=== PATIENT | female | born 1940 | race Caucasian/White ===

== ENCOUNTER 2018-05-24 13:34 | Inpatient (IN) | payer OTHER, MEDICARE ==
[~2018-05-24] VITALS: Ht 160 cm; Wt 61.8 kg
[~2018-05-24 13:34] MED LIST: BYSTOLIC 5MG5 MG PO; CARDIZEM CD 12120 MG PO; CARDIZEM CD180 MG PO; CRESTOR20 MG PO; DIGOX0.125 MG PO; ELIQUIS5 MG PO; Mucinex PO; OMEPRAZOLE20 MG PO; PLAVIX 75MG TAB75 MG PO; TYLENOL TAB 32325 MG PO; ULTRAM(MONOGRAP50 MG PO; VITAMIN D1000 IU PO
--- NOTE | 2018-05-24 13:58 | CT SCAN REPORT ---
EXAMINATION: CT HEAD WITHOUT CONTRAST CLINICAL INFORMATION: Headache and weakness. ICH mass. COMPARISON: Head CT 04/04/2014. TECHNIQUE: Contiguous axial imaging was performed from the skull base to vertex without intravenous administration of contrast. DLP: 605 mGy-cm. FINDINGS: There is no acute infarct, hemorrhage, mass, or extra-axial collection. There is redemonstration of a small focus of encephalomalacia in the high right paramedian frontal lobe (series 2 image 48). There is mild hypoattenuation in the periventricular and deep cerebral white matter extending into the basal ganglia likely reflecting small vessel ischemic changes. There is mild diffuse brain parenchymal volume loss with prominence of ventricles and sulci. No hydrocephalus is seen. The visualized paranasal sinuses and mastoid air cells are clear. Degenerative changes are noted at the right temporomandibular joint. IMPRESSION: - No acute intracranial abnormality. - Mild small vessel ischemic changes. Small old infarct in the high right frontal lobe. - Mild diffuse brain parenchymal volume loss.
[2018-05-24 14:01] LABS: ABSOLUTE BASOPHIL COUNT 0.1 /CUMM (0.0-0.2); ABSOLUTE EOSINOPHIL COUNT 0.1 /CUMM (0.0-0.7); ABSOLUTE GRANULOCYTE CT 4.2 /CUMM (1.4-6.5); ABSOLUTE LYMPH COUNT 1.9 /CUMM (1.2-3.4); ABSOLUTE MONOCYTE COUNT 0.4 /CUMM (0.10-0.60); EOSINOPHIL % 1.1 % (0-5); GRANULOCYTE % 63.1 % (42.2-75.2); HEMATOCRIT 34.1 % (37-47); MEAN CORPUSCULAR HGB 24.9 PG (27.0-31.0); MEAN CORPUSCULAR HGB CONC 33.2 G/DL (33.0-37.0); MEAN PLATELET VOLUME 7.8 FL (7.4-10.4); PLATELET COUNT 366 /CUMM (130-400); RBC DISTRIBUTION WIDTH 22.4 % (11.5-14.5); RED BLOOD CELL CT 4.54 /CUMM (4.20-5.40); WHITE BLOOD CELL COUNT 6.7 /CUMM (4.8-10.8)
--- NOTE | 2018-05-24 14:06 | ED NEURO DEFICIT/STROKE ---
History of Present Illness General Chief Complaint: Neuro Symptoms/ Deficit Stated Complaint: BROUGHT IN FOR POSSIBLE MINI STROKE PER Source: patient Exam Limitations: no limitations Vital Signs & Intake/Output Vital Signs & Intake/Output Vital Signs Date Time Temp Pulse Resp B/P B/P Pulse O2 O2 Flow FiO2 Mean Ox Delivery Rate 05/24 1833 98.1 74 20 182/78 95 Room Air 05/24 1734 98.0 72 20 150/70 95 Room Air 05/24 1542 96 Room Air 05/24 1535 97.2 80 20 177/75 96 Room Air 05/24 1423 98.0 80 20 136/63 98 05/24 1337 97.2 86 18 171/78 95 Room Air Allergies Coded Allergies: MDX - Codeine (CODEINE) (Intermediate, VOMITING 04/04/14) MDX - Penicillin (PENICILLIN) (Intermediate, HIVES 04/04/14) Reconcile Medications Apixaban (Eliquis) 5 MG TABLET 1 TAB PO Q12 AFIB Cholecalciferol (Vitamin D3) 1,000 UNIT TABLET 1 TAB PO DAILY SUPPLEMENT DILTIAZEM HCL (Cardizem Cd) 180 MG CAP.ER.24H 1 CAP PO DAILY heart [Mucinex] 600 mg TAB 1 TAB PO Q12 sinus Nebivolol (Bystolic) 5 MG TABLET 1 TAB PO DAILY AFIB (Reported) Omeprazole 20 MG CAPSULE.DR 2 TAB PO BID BARRETTCarlos ESOPHOGUS (Reported) Rosuvastatin Calcium (Crestor) 20 MG TABLET 1 TAB PO DAILY CHOLESTROL Triage Note: 77 Y/O FEMALE BROUGHT TO [facility] WITH FAMILY C/O "NOT BEING ABLE TO FIND WORDS" SINCE THIS AM. PT WITH HX CVA. STATES SHE WOKE UP TODAY AND "CANNOT GET SOME WORDS". SPEECH CLEAR THOUGH PT DOES EXHIBIT DIFFICULTY FINDING SOME WORDS. TAKEN DIRECTLY TO CT SCAN FROM TRIAGE, THEN GOING TO ROOM 11 Triage Nurses Notes Reviewed? yes HPI: Patient presents for evaluation of trouble speaking that began this morning (I have been unable to obtain a definite time of onset and it is not clear if the patient awoke with symptoms or not). Patient states she took a nap and ate lunch and thought she was doing better. Then symptoms seemed to worsen again. She states symptoms have waxed and waned since onset but have been more or less constant. She denies any prior episodes. Patient states that while she was eating lunch she thought her right arm was "a little off". She denies any associated visual loss, facial droop or lower extremity weakness. She likewise denies chest pain or palpitations. She is currently taking Eliquis for history of atrial fibrillation. Past History Travel History Traveled to [place] past 21 day No Medical History Any Pertinent Medical History? 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 No Review of Systems Review of Systems Constitutional: Reports: no symptoms. EENTM: Reports: no symptoms. Respiratory: Reports: no symptoms. Cardiovascular: Reports: no symptoms. GI: Reports: no symptoms. Genitourinary: Reports: no symptoms. Musculoskeletal: Reports: no symptoms. Skin: Reports: no symptoms. Neurological/Psychological: Reports: see HPI. Hematologic/Endocrine: Reports: no symptoms. Immunologic/Allergic: Reports: no symptoms. All Other Systems: Reviewed and Negative Physical Exam Physical Exam General Appearance: see below Cranial Nerves: see below Comments: Gen.: Well-nourished, well-developed, no acute respiratory distress. Head: Normocephalic, atraumatic. Eyes: Normal inspection bilaterally, PERRLA, EOMI Ears: Normal inspection bilaterally Nose: Normal inspection Throat/mouth : Moist mucosa , normal tongue protrusion Neck: Supple, full range of motion, no goiter, Heart: Regular rate and rhythm, no murmurs rubs or gallops Lungs: Clear to auscultation bilaterally with normal air entry Chest: Nontender Back: Normal range of motion Abdomen: Nondistended, normal bowel sounds Extremities: Normal range of motion grossly, equal radial pulses, no cyanosis clubbing or edema, dysmetria of the right upper extremity, weakness of the left calf (chronic per patient secondary to prior stroke) Neurologic: Cranial nerves 2 through 12 intact, speech is clear and without apparent aphasia, gait is stable Skin: warm and dry Psychiatric: Calm, cooperative, no apparent delusions or hallucinations Core Measures CVA/TIA Diagnosis: Yes Swallow Evaluation Pass Swallow eval date 05/24/18 Swallow eval time 1901 Sepsis Present: No Sepsis Focused Exam Completed? No Progress Differential Diagnosis: cva, tia, HYPOGLYCEMIA, ELECTRONIC ABNORMALITY Plan of Care: Orders Procedure Date/time Status Heart Healthy Diet 05/25 B Active Misc Message 05/24 1902 Active ED Holding Orders 05/24 1902 Active Admit to inpatient 05/24 1902 Active Vital Signs 05/24 1902 Active Code Status 05/24 1902 Active EKG 05/24 143 Active TROPONIN LEVEL 05/24 133 Complete PARTIAL THROMBOPLASTIN TIME 05/24 1337 Complete PROTHROMBIN TIME 05/24 1337 Complete COMPREHENSIVE METABOLIC PANEL 05/24 1337 Complete CBC WITHOUT DIFFERENTIAL 05/24 1337 Complete Laboratory Tests 05/24/18 1350: Anion Gap 9, Estimated GFR > 60, BUN/Creatinine Ratio 28.0 H, Glucose 113 H, Calcium 9.1, Total Bilirubin 0.3, AST 20, ALT 26, Alkaline Phosphatase 75, Troponin I < 0.01, Total Protein 7.3, Albumin 4.2, Globulin 3.1, Albumin/ Globulin Ratio 1.4, PT 15.1 H, INR 1.38 H, APTT 32, CBC w Diff NO MAN DIFF REQ , RBC 4.54, MCV 75.0 L, MCH 24.9 L, MCHC 33.2, RDW 22.4 H, MPV 7.8, Gran % 63.1, Lymphocytes % 28.3, Monocytes % 6.5, Eosinophils % 1.1, Basophils % 1.0, Absolute Granulocytes 4.2, Absolute Lymphocytes 1.9, Absolute Monocytes 0.4, Absolute Eosinophils 0.1, Absolute Basophils 0.1 Diagnostic Imaging: Discussed w/RAD: CT Scan. Radiology Impression: PATIENT: MICHEAL CASTELLANO PRESENT AGE: 77 PATIENT ACCOUNT NO: [id number] : 38 LOCATION: [facility] ORDERING PHYSICIAN: Eder DAILEY SERVICE DATE: 05/24/18 EXAM TYPE: CAT - CT HEAD WO IV CONTRAST EXAMINATION: CT HEAD WITHOUT CONTRAST CLINICAL INFORMATION: Headache and weakness. ICH mass. COMPARISON: Head CT 04/04/2014. TECHNIQUE: Contiguous axial imaging was performed from the skull base to vertex without intravenous administration of contrast. DLP: 605 mGy-cm. FINDINGS: There is no acute infarct, hemorrhage, mass, or extra-axial collection. There is redemonstration of a small focus of encephalomalacia in the high right paramedian frontal lobe (series 2 image 48). There is mild hypoattenuation in the periventricular and deep cerebral white matter extending into the basal ganglia likely reflecting small vessel ischemic changes. There is mild diffuse brain parenchymal volume loss with prominence of ventricles and sulci. No hydrocephalus is seen. The visualized paranasal sinuses and mastoid air cells are clear. Degenerative changes are noted at the right temporomandibular joint. IMPRESSION: - No acute intracranial abnormality. - Mild small vessel ischemic changes. Small old infarct in the high right frontal lobe. - Mild diffuse brain parenchymal volume loss. DICTATED BY: Howard Walter MD DATE/TIME DICTATED:1351 [employer] SUITING SHRINKER:ANDREE DATE/TIME TRANSCRIBED:05/24/181351 CONFIDENTIAL, DO NOT COPY WITHOUT APPROPRIATE AUTHORIZATION. <Electronically signed in Other Vendor System> SIGNED BY: Howard Walter MD 05/24/185 Initial ED EKG: NSR, rate (83) Prior EKG: unchanged Comments: Patient was not a candidate for TPA given the duration of symptoms and her use of Eliquis. 05/24/2018 3:07:07 PM patient's case discussed with Dr. Carrera. Neurology has been paged. Patient remains clinically stable with a persistent expressive aphasia but no other acute findings. 05/24/2018 3:17:34 PM patient's case discussed with Dr. Márquez, CTA ordered. The patient has a thrombosis amenable to thrombectomy I will contact [facility]. 05/24/2018 4:35:30 PM patient has been evaluated by Dr. Márquez. CTA is pending. Patient's disposition will be decided by CTA. 05/24/2018 5:57:[address] Márquez recommends returning patient back to her full Eliquis dose. Departure Departure Disposition: STILL A PATIENT Condition: Stable Clinical Impression Primary Impression: CVA (cerebral vascular accident) Qualifiers: CVA mechanism: unspecified Qualified Code: I63.9 - Cerebral infarction, unspecified Referrals: Odin BAY,Sabrina Paul (PCP/Family) Departure Forms: Customer Survey General Discharge Information Admission Note Spoke With: Ramon Garcia MD Documentation of Exam: Documentation of any treatments & extenuating circumstances including Concerns Regarding Discharge (functional status, medication knowledge or non-compliance, living conditions, etc.) that warrant an admission rather than observation: Patient has suffered a stroke resulting in an expressive aphasia. This represents significant disability and I feel the patient requires hospitalization for an expedited evaluation of potentially reversible causes of her CVA including cardioembolic disease. While in the hospital a patient should have a neurology consultation and serial neurologic examinations, consideration of cardiology consultation for echocardiogram, and optimize elevations of her medical management. Speech therapy consultation should be considered to assist the patient in recovering her speech. I feel this patient will require a multiple day hospitalization.
[2018-05-24 14:17] LABS: PT 15.1 SEC (9.4-12.5); PTT 32 SEC (25-37)
--- NOTE | 2018-05-24 15:17 | History & Physical ---
General Information and HPI Allergies/Medications Allergies: Coded Allergies: MDX - Codeine (CODEINE) (Intermediate, VOMITING 04/04/14) MDX - Penicillin (PENICILLIN) (Intermediate, HIVES 04/04/14) Home Med list Acetaminophen (Tylenol Tab 325 MG) 325 MG TABLET 2 TAB PO Q8 PAIN IN L KNEE Apixaban (Eliquis) 5 MG TABLET 1 TAB PO Q12 AFIB Cholecalciferol (Vitamin D3) 1,000 UNIT TABLET 1 TAB PO DAILY SUPPLEMENT DILTIAZEM HCL (Cardizem Cd) 180 MG CAP.ER.24H 1 CAP PO DAILY heart [Mucinex] 600 mg TAB 1 TAB PO Q12 sinus Nebivolol (Bystolic) 5 MG TABLET 1 TAB PO DAILY AFIB (Reported) Omeprazole 20 MG CAPSULE.DR 2 TAB PO BID BARRETTS ESOPHOGUS (Reported) Rosuvastatin Calcium (Crestor) 20 MG TABLET 1 TAB PO DAILY CHOLESTROL Tramadol HCl (Ultram) 50 MG TABLET 1 TAB PO Q6P PRN PAIN 5-10/10 Past History Travel History Traveled to [place] past 21 day No Medical History Neurological: CVA EENT: NONE Cardiovascular: AFIB Respiratory: NONE Gastrointestinal: NONE Hepatic: NONE Renal: NONE Musculoskeletal: NONE Psychiatric: NONE Endocrine: NONE Blood Disorders: NONE Cancer(s): NONE 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
--- NOTE | 2018-05-24 16:57 | Cons- Neurology ---
General Information and HPI Consulting Request Date of Consult: 05/24/18 Requested By: Aydin Leahy MD Reason for Consult: Dysphasia Source of Information: patient, family Exam Limitations: clinical condition History of Present Illness: 77/F presents with difficulty speaking. Was OK around 9:30 when her son phoned her. Later, exact time unknown, couldn't speak on another call and was brought to the ER She is on eliquis for PAF and a stroke in 2013 leaving weakness of the left leg. Since arrival there has been some improvement in language, according to her son. No associated headache, lateralized weakness, clumsiness, numbness or paresthesia Allergies/Medications Allergies: Coded Allergies: MDX - Codeine (CODEINE) (Intermediate, VOMITING 04/04/14) MDX - Penicillin (PENICILLIN) (Intermediate, HIVES 04/04/14) Home Med List: Acetaminophen (Tylenol Tab 325 MG) 325 MG TABLET 2 TAB PO Q8 PAIN IN L KNEE Apixaban (Eliquis) 5 MG TABLET 1 TAB PO Q12 AFIB Cholecalciferol (Vitamin D3) 1,000 UNIT TABLET 1 TAB PO DAILY SUPPLEMENT DILTIAZEM HCL (Cardizem Cd) 180 MG CAP.ER.24H 1 CAP PO DAILY heart [Mucinex] 600 mg TAB 1 TAB PO Q12 sinus Nebivolol (Bystolic) 5 MG TABLET 1 TAB PO DAILY AFIB (Reported) Omeprazole 20 MG CAPSULE.DR 2 TAB PO BID BARRETTS ESOPHOGUS (Reported) Rosuvastatin Calcium (Crestor) 20 MG TABLET 1 TAB PO DAILY CHOLESTROL Tramadol HCl (Ultram) 50 MG TABLET 1 TAB PO Q6P PRN PAIN 5-10/10 Review of Systems Review of Systems: Limited by dysphasia, did deny chest pain, palpitation, headache, vision loss or lateralized symptoms. Feels well in general Past History Travel History Traveled to [place] past 21 day No Medical History Neurological: CVA EENT: NONE Cardiovascular: AFIB Respiratory: NONE Gastrointestinal: NONE Hepatic: NONE Renal: NONE Musculoskeletal: NONE Psychiatric: NONE Endocrine: NONE Blood Disorders: NONE Cancer(s): NONE BREAD ICER/Reproductive: NONE Surgical History Surgical History: non-contributory Exam & Diagnostic Data Vital Signs and I&O Vital Signs Date Time Temp Pulse Resp B/P B/P Pulse O2 O2 Flow FiO2 Mean Ox Delivery Rate 05/24 1542 96 Room Air 05/24 1535 97.2 80 20 177/75 96 Room Air 05/24 1423 98.0 80 20 136/63 98 05/24 1337 97.2 86 18 171/78 95 Room Air Intake & Output 05/24 1600 05/24 0800 05/24 0000 Intake Total Output Total 200 Balance -200 Output, Urine 200 Patient 135 lb Weight Weight Standing Scale Measurement Method Physical Exam: Looks well, NAD\ no bruits, murmur, periph pulses OK Alert mild to moderate expressive dysphasia with dysnomia, some word substitutions, follows commands easily. dyscalculia VFF, EOMI, [id number]\ mild right lower facial droop other lower CN normal pronator drift RUE tone normal DTRs equal gait not tested sensation OK Last 48 Hours of Lab Results: Laboratory Tests 05/24 1350 Chemistry Sodium (137 - 145 mmol/L) 141 Potassium (3.5 - 5.1 mmol/L) 4.4 Chloride (98 - 107 mmol/L) 107 Carbon Dioxide (22 - 30 mmol/L) 26 Anion Gap (5 - 16) 9 BUN (7 - 17 mg/dL) 14 Creatinine (0.5 - 1.0 mg/dL) 0.5 Estimated GFR (>60 ml/min) > 60 BUN/Creatinine Ratio (7 - 25 %) 28.0 H Glucose (65 - 99 mg/dL) 113 H Calcium (8.4 - 10.2 mg/dL) 9.1 Total Bilirubin (0.2 - 1.3 mg/dL) 0.3 AST (14 - 36 U/L) 20 ALT (9 - 52 U/L) 26 Alkaline Phosphatase (<127 U/L) 75 Troponin I (< 0.11 ng/ml) < 0.01 Total Protein (6.3 - 8.2 g/dL) 7.3 Albumin (3.5 - 5.0 g/dL) 4.2 Globulin (1.9 - 4.2 gm/dL) 3.1 Albumin/Globulin Ratio (1.1 - 2.2 %) 1.4 Coagulation PT (9.4 - 12.5 SEC) 15.1 H INR (0.90 - 1.19) 1.38 H APTT (25 - 37 SEC) 32 Hematology CBC w Diff NO MAN DIFF REQ WBC (4.8 - 10.8 /CUMM) 6.7 RBC (4.20 - 5.40 /CUMM) 4.54 Hgb (12.0 - 16.0 G/DL) 11.3 L Hct (37 - 47 %) 34.1 L MCV (81.0 - 99.0 FL) 75.0 L MCH (27.0 - 31.0 PG) 24.9 L MCHC (33.0 - 37.0 G/DL) 33.2 RDW (11.5 - 14.5 %) 22.4 H Plt Count (130 - 400 /CUMM) 366 MPV (7.4 - 10.4 FL) 7.8 Gran % (42.2 - 75.2 %) 63.1 Lymphocytes % (20.5 - 51.1 %) 28.3 Monocytes % (1.7 - 9.3 %) 6.5 Eosinophils % (0 - 5 %) 1.1 Basophils % (0.0 - 2.0 %) 1.0 Absolute Granulocytes (1.4 - 6.5 /CUMM) 4.2 Absolute Lymphocytes (1.2 - 3.4 /CUMM) 1.9 Absolute Monocytes (0.10 - 0.60 /CUMM) 0.4 Absolute Eosinophils (0.0 - 0.7 /CUMM) 0.1 Absolute Basophils (0.0 - 0.2 /CUMM) 0.1 Imaging/Other Studies: CT There is no acute infarct, hemorrhage, mass, or extra-axial collection. There is redemonstration of a small focus of encephalomalacia in the high right paramedian frontal lobe (series 2 image 48). There is mild hypoattenuation in the periventricular and deep cerebral white matter extending into the basal ganglia likely reflecting small vessel ischemic changes. There is mild diffuse brain parenchymal volume loss with prominence of ventricles and sulci. No hydrocephalus is seen. Assessment/Plan Assessment: CVA, acute, left MCA with dysphasia On eliquis, not candidate for TPA may still be in time window for mechanical thrombectomy Recommendations: CTA, if clot call [place] stroke service NIHSS low but language affected otherwise, admit add ASA 81 to eliquis continue statin telemetry consider Echo Speech therapy Consult Acknowledgment - Thank you for your consult request.
--- NOTE | 2018-05-24 18:27 | CT SCAN REPORT ---
EXAMINATION: CTA OF THE HEAD AND NECK CLINICAL INFORMATION: Aphasia. COMPARISON: Head CT from 04/04/2014. TECHNIQUE: Test bolus sequences followed by intravenous administration 95 mL of Optiray 320. Helical imaging was performed in the axial plane from the mediastinum to the skull vertex. Delayed postcontrast imaging of the head was also performed. The data was processed at the senior medical technologist's workstation for generation of MIP sequences. Three-dimensional volume rendered reformatted images were also generated at an offline 3-D workstation. Stenoses are assessed in accordance with NASCET criteria unless otherwise indicated. DLP: 2436.02 mGy-cm. FINDINGS: CT head: There is no evidence of acute intracranial hemorrhage or territorial infarction. There is no loss of corrigan to white matter differentiation. No abnormal mass effect or midline shift is seen. No extra-axial fluid collections are identified. There is no abnormal enhancement. The ventricles are normal in size. Mild chronic white matter microangiopathy again noted with a small chronic infarct in the medial right frontal lobe at the vertex. The osseous structures and soft tissues are normal. The mastoid air cells and visualized portions of the paranasal sinuses are well aerated. CTA neck: The imaged aortic arch and origins of the great vessels are normal. The common carotid arteries are widely patent. The carotid bifurcations are relatively normal with mild atherosclerotic wall calcifications. The cervical internal carotid arteries are normal. The vertebral arteries opacify normally and are of normal caliber. There is a subcentimeter low-density nodule versus left thyroid lobe. Moderate mid to lower cervical spondylosis evident. Mild anterior subluxation at C4-C5. The imaged portions of the lungs are clear. The main pulmonary artery is dilated to 3.3 cm in diameter. CTA head: The intradural vertebral arteries and basilar artery are normal. The posterior cerebral arteries are widely patent. The internal carotid arteries are of normal caliber. The SONY and MCA vascular complexes bilaterally are normal. The venous sinuses opacify normally. IMPRESSION: No vascular occlusions or high-grade stenoses in the intracranial or cervical vasculature. Dilatation of the main pulmonary artery which can be seen in the setting of pulmonary artery hypertension. Clinically correlate.
--- NOTE | 2018-05-24 19:50 | History & Physical ---
Lacho Reyna 05/24/18 1950: General Information and HPI MD Statement: I have seen and personally examined MICHEAL CASTELLANO and documented this H&P. The patient is a 77 year old F who presented with a patient stated chief complaint of SPEECH DIFFICULTIES. Source of Information: patient, family Exam Limitations: clinical condition History of Present Illness: 77-year-old female past medical history of CVA in 2014, A. fib and osteoarthritis who presents with difficulty speaking, concerning for TIA/CVA. Patient was in normal state of health at 0930 when she spoke to her son on the phone. Later, exact time unknown, she was unable to speak on another call was brought to the ER. She is on Eliquis for paroxysmal atrial fibrillation and a stroke in 2013, which left weakness of the leg. Since arrival there is been improvement in language. Patient endorses mild headache, but no lateralized weakness, clumsiness, numbness or paresthesia. No chest pain, shortness of breath, recent illnesses or vision changes. In the emergency department, EKG showed normal sinus rhythm rate of 83, head CT showed no intracranial abnormality, and head and neck CTA showed no vascular occlusions or high-grade stenoses. Patient was admitted to telemetry for concern for TIA/CVA Allergies/Medications Allergies: Coded Allergies: Penicillins (Mild, HIVES 05/25/18) codeine (Mild, VOMITING 05/25/18) Home Med list Alendronate Sodium 35 MG TABLET 1 TAB PO QW . (Reported) Apixaban (Eliquis) 5 MG TABLET 1 TAB PO Q12 AFIB Cholecalciferol (Vitamin D3) 1,000 UNIT TABLET 1 TAB PO DAILY SUPPLEMENT Diltiazem HCl (Diltiazem 24HR ER) 120 MG CAP.ER.24H 1 CAP PO DAILY HTN,AFIB ( Reported) Ezetimibe (Zetia) 10 MG TABLET 1 TAB PO DAILY CHOLESTEROL (Reported) Flecainide Acetate 100 MG TABLET 1 TAB PO BID . (Reported) Omeprazole 20 MG CAPSULE.DR 2 TAB PO BID MANOLO PETERSONOPHOGUS (Reported) Pravastatin Sodium (Pravachol) 40 MG TABLET 1 TAB PO DAILY CHOLESTEROL ( Reported) Compliance With Home Meds: GOOD Past History Travel History Traveled to [place] past 21 day No Medical History Neurological: CVA EENT: NONE Cardiovascular: AFIB Respiratory: NONE Gastrointestinal: NONE Hepatic: NONE Renal: NONE Musculoskeletal: NONE Psychiatric: NONE Endocrine: NONE Blood Disorders: NONE Cancer(s): NONE PATIENT SVCS MGR/Reproductive: NONE History of MRSA: No History of VRE: No Pneumonia Vaccine: 07/05/12 Surgical History Surgical History: non-contributory Past Family/Social History Family History Relations & Conditions if any MOTHER, . FH: pancreatic cancer BROTHER Cardiac pacemaker FH: heart disease SISTER Cardiac pacemaker FH: heart disease Psychosocial History Where do you live? Home Primary Language: [place] Smoking Status: Never Smoked Review of Systems Review of Systems Constitutional: Reports: see HPI. Exam & Diagnostic Data Last 24 Hrs of Vital Signs/I&O Vital Signs Date Time Temp Pulse Resp B/P B/P Pulse O2 O2 Flow FiO2 Mean Ox Delivery Rate 05/24 2258 98.4 67 18 130/60 96 05/24 1942 70 16 186/74 97 Room Air 05/24 1833 98.1 74 20 182/78 95 Room Air 05/24 1734 98.0 72 20 150/70 95 Room Air 05/24 1542 96 Room Air 05/24 1535 97.2 80 20 177/75 96 Room Air 05/24 1423 98.0 80 20 136/63 98 05/24 1337 97.2 86 18 171/78 95 Room Air Intake & Output 05/25 0800 05/25 0000 05/24 1600 Intake Total 240 Output Total 200 Balance 240 -200 Intake, Oral 240 Output, Urine 200 Patient 137 lb 135 lb Weight Weight Bed scale Standing Scale Measurement Method Physical Exam General Appearance Alert, Oriented X3, Cooperative, No Acute Distress Skin No Rashes, No Breakdown, No Significant Lesion Skin Temp/Moisture Exam: Warm/Dry HEENT Atraumatic, PERRLA, EOMI, Mucous Membr. moist/pink Neck Supple, No JVD, No thryomegaly Cardiovascular Regular Rate, Normal S1, Normal S2, No Murmurs, Gallops, Rubs Lungs Clear to Auscultation, Normal Air Movement Abdomen Soft, No Tenderness, No Hepatospenomegaly, No Masses Neurological Normal Speech, Strength at 5/5 X4 Ext, Normal Tone, Sensation Intact, left foot drop, unchanged from previous Extremities No Clubbing, No Cyanosis, No Edema Last 24 Hrs of Labs/Wilberto: Laboratory Tests 05/24/18 1350: Anion Gap 9, Estimated GFR > 60, BUN/Creatinine Ratio 28.0 H, Glucose 113 H, Calcium 9.1, Total Bilirubin 0.3, AST 20, ALT 26, Alkaline Phosphatase 75, Troponin I < 0.01, Total Protein 7.3, Albumin 4.2, Globulin 3.1, Albumin/ Globulin Ratio 1.4, PT 15.1 H, INR 1.38 H, APTT 32, CBC w Diff NO MAN DIFF REQ , RBC 4.54, MCV 75.0 L, MCH 24.9 L, MCHC 33.2, RDW 22.4 H, MPV 7.8, Gran % 63.1, Lymphocytes % 28.3, Monocytes % 6.5, Eosinophils % 1.1, Basophils % 1.0, Absolute Granulocytes 4.2, Absolute Lymphocytes 1.9, Absolute Monocytes 0.4, Absolute Eosinophils 0.1, Absolute Basophils 0.1 Diagnostic Data EKG Results Normal sinus rhythm, 83 bpm Other Results Head CT-showed no intracranial abnormality head and neck CTA showed no vascular occlusions or high-grade stenoses Assessment/Plan Assessment: 77 year old female with PMH of HLD, prior CVA, and paroxysmal atrial fibrillation presents with acute onset dysphasia consistent with acute ischemic stroke. Problem list/plan: TIA/CVA -CT Head and CTA negative for any acute infarction or thrombus/vascular occlusion -Admit and monitor on telemetry -Neurology consultation -Continue eliquis 5mg po bid -Add aspirin 81mg -Continue statin therapy -Check echocardiogram -Speech and PT evaluation pAfib -Continue diltiazem, flecanide, and eliquis HLD -continue statin and ezetimibe DVT prophylaxis - Eliquis, ALPS Heart healthy diet Patient is full code As Ranked By This Provider Problem List: 1. CVA (cerebral vascular accident) Qualifiers CVA mechanism: unspecified Qualified Code: I63.9 - Cerebral infarction, unspecified 2. Atrial fibrillation 3. Foot drop, left Core Measures/Misc (06/21) Acute Coronary Syndrome ACS Diagnosis: No Congestive Heart Failure Congestive Heart Failure Diagnosis No Cerebrovascular Accident CVA/TIA Diagnosis: Yes NIH Stroke Scale: Total 0 Date Last Known Well: 05/25/18 Time Last Known Well: 929 Symptom Start Date: 05/24/18 Symptom Start Time: 1300 tPA given? No Reason tPA not ordered Medical Contraindication Swallow Evaluation Pass Current/Past Hx AFib/AFlutter Yes VTE (View Protocol) VTE Risk Factors Age>40 No Mechanical VTE Prophylaxis d/t N/A MechProphylax Ordered No VTE Pharm Prophylaxis d/t NA PharmProphylax ordered Sepsis (View protocol) Sepsis Present: No If YES complete Sepsis Event Note If YES complete Sepsis Event Note Gabino Fam MD 05/25/18 0411: General Information and HPI MD Statement: I have seen and personally examined MICEHAL CASTELLANO and documented this H&P. The patient is a 77 year old F who presented with a patient stated chief complaint of difficulty speaking. Source of Information: patient, family, old records Exam Limitations: clinical condition History of Present Illness: 77 year old female with PMH significant for prior CVA in 2013, paroxysmal atrial fibrillation on flecainide, diltiazem, and eliquis who presented with difficulty speaking, concerning for acute stroke. The patient was in her usual state of health in the morning when she spoke to her son on the phone. Later, exact time unknown ~1300, her symptoms developed and she was unable to speak on another call was brought to the ER. Her symptoms had improved by the time of arrival with very mild residual dysphasia, but not her baseline according to her son. She has occasional word finding difficulty and some mispronounciation of complex words but otherwise has dramatically improved. She complains of a mild headache , but no acute weakness, numbness, or paresthesia. She does have some chronic left lower extremity weakness from her prior CVA but her LUE extremity function is good. She is right hand dominant. She denies any chest pain, shortness of breath, recent illnesses, vision changes, or any other symptoms on review of systems. In the ED, her head CT was negative, head/neck CTA showed no acute vascular occlusions or thrombus. She is in normal sinus rhythm, labs were unremarkable, and she was admitted to telemetry for probably left MCA territory CVA. Allergies/Medications Compliance With Home Meds: GOOD Past History Travel History Traveled to [place] past 21 day No Medical History Neurological: CVA EENT: NONE Cardiovascular: AFIB Respiratory: NONE Gastrointestinal: NONE Hepatic: NONE Renal: NONE Musculoskeletal: NONE Psychiatric: NONE Endocrine: NONE Blood Disorders: NONE Cancer(s): NONE PATIENT SVCS MGR/Reproductive: NONE History of MRSA: No Surgical History Surgical History: non-contributory Past Family/Social History Psychosocial History Where do you live? Home Primary Language: [place] Smoking Status: Never Smoked Functional Ability Ambulation: cane Review of Systems Review of Systems Constitutional: Denies: chills, diaphoresis, fever. EENTM: Denies: blurred vision, nasal congestion. Cardiovascular: Denies: chest pain, syncope. Respiratory: Denies: cough, short of breath. GI: Denies: abdominal pain, diarrhea, nausea, vomiting. Genitourinary: Denies: dysuria, frequency. Musculoskeletal: Reports: no symptoms. Skin: Reports: no symptoms. Neurological/Psychological: Reports: no symptoms. Hematologic/Endocrine: Reports: no symptoms. Immunologic/Allergic: Reports: no symptoms. All Other Systems: Reviewed and Negative Exam & Diagnostic Data Last 24 Hrs of Vital Signs/I&O Vital Signs Date Time Temp Pulse Resp B/P B/P Pulse O2 O2 Flow FiO2 Mean Ox Delivery Rate 05/24 2258 98.4 67 18 130/60 96 05/24 1942 70 16 186/74 97 Room Air 05/24 1833 98.1 74 20 182/78 95 Room Air 05/24 1734 98.0 72 20 150/70 95 Room Air 05/24 1542 96 Room Air 05/24 1535 97.2 80 20 177/75 96 Room Air 05/24 1423 98.0 80 20 136/63 98 05/24 1337 97.2 86 18 171/78 95 Room Air Intake & Output 05/25 0800 05/25 0000 05/24 1600 Intake Total 240 Output Total 200 Balance 240 -200 Intake, Oral 240 Output, Urine 200 Patient 62.284 kg 61.235 kg Weight Weight Bed scale Standing Scale Measurement Method Physical Exam General Appearance Alert, Oriented X3, Cooperative, No Acute Distress Cardiovascular Regular Rate, Normal S1, Normal S2, No Murmurs Lungs Clear to Auscultation, Normal Air Movement Abdomen Normal Bowel Sounds, Soft, No Tenderness, No Masses Neurological Normal Speech, Strength at 5/5 X4 Ext, Normal Tone, left foot drop, unchanged from previous Extremities No Clubbing, No Cyanosis, No Edema Last 24 Hrs of Labs/Wilberto: Laboratory Tests 05/24/18 1350: Anion Gap 9, Estimated GFR > 60, BUN/Creatinine Ratio 28.0 H, Glucose 113 H, Calcium 9.1, Total Bilirubin 0.3, AST 20, ALT 26, Alkaline Phosphatase 75, Troponin I < 0.01, Total Protein 7.3, Albumin 4.2, Globulin 3.1, Albumin/ Globulin Ratio 1.4, PT 15.1 H, INR 1.38 H, APTT 32, CBC w Diff NO MAN DIFF REQ , RBC 4.54, MCV 75.0 L, MCH 24.9 L, MCHC 33.2, RDW 22.4 H, MPV 7.8, Gran % 63.1, Lymphocytes % 28.3, Monocytes % 6.5, Eosinophils % 1.1, Basophils % 1.0, Absolute Granulocytes 4.2, Absolute Lymphocytes 1.9, Absolute Monocytes 0.4, Absolute Eosinophils 0.1, Absolute Basophils 0.1 Diagnostic Data EKG Results sinus rhythm without ischemic changes Other Results Head CT IMPRESSION: - No acute intracranial abnormality. - Mild small vessel ischemic changes. Small old infarct in the high right frontal lobe. - Mild diffuse brain parenchymal volume loss. Head/Neck CTA The imaged aortic arch and origins of the great vessels are normal. The common carotid arteries are widely patent. The carotid bifurcations are relatively normal with mild atherosclerotic wall calcifications. The cervical internal carotid arteries are normal. The vertebral arteries opacify normally and are of normal caliber. There is a subcentimeter low-density nodule versus left thyroid lobe. Moderate mid to lower cervical spondylosis evident. Mild anterior subluxation at C4-C5. The imaged portions of the lungs are clear. The main pulmonary artery is dilated to 3.3 cm in diameter. CTA head: The intradural vertebral arteries and basilar artery are normal. The posterior cerebral arteries are widely patent. The internal carotid arteries are of normal caliber. The SONY and MCA vascular complexes bilaterally are normal. The venous sinuses opacify normally. Assessment/Plan Assessment: 77 year old female with PMH of Jordan's esophagus, HLD, prior CVA, and paroxysmal atrial fibrillation presents with acute onset dysphasia consistent with acute ischemic stroke. Acute CVA: CT Head and CTA negative for any acute infarction or thrombus/vascular occlusion Monitor on telemetry Neurology consultation Continue eliquis 5mg po bid Add aspirin 81mg Continue statin therapy Check echocardiogram Speech and PT evaluation pAfib: Continue diltiazem, flecanide, and eliquis Jordan's esophagus: Continue PO PPI BID HLD: Continue statin and zetia Heart healthy diet DVT ppx-eliquis Full code As Ranked By This Provider Problem List: 1. CVA (cerebral vascular accident) Qualifiers CVA mechanism: unspecified Qualified Code: I63.9 - Cerebral infarction, unspecified 2. Foot drop, left 3. Barretts esophagus 4. Atrial fibrillation Core Measures/Misc (06/21) Acute Coronary Syndrome ACS Diagnosis: No Congestive Heart Failure Congestive Heart Failure Diagnosis No Cerebrovascular Accident CVA/TIA Diagnosis: Yes NIH Stroke Scale: Total 0 Date Last Known Well: 05/24/18 Time Last Known Well: 929 Symptom Start Date: 05/24/18 Symptom Start Time: 1300 tPA Risk/Benefit discussion I have discussed the risks, benefits, and alternatives of Alteplase treatment including: - If given promptly, can resolve or have major improvement in stroke symptoms. - Bleeding (hemorrhage) is the most common risk that can occur. - Bleeding may occur into the brain and cause~director long term care serious disability~ including - this is rare, affecting about 1% of patients. - Alternative treatments with proven benefit for patients with stroke include aspirin and care in a specialized unit where staff members pay careful attention to a variety of basic aspects of care. tPA given? No Reason tPA not ordered Medical Contraindication Swallow Evaluation Pass Current/Past Hx AFib/AFlutter Yes VTE (View Protocol) VTE Risk Factors Age>40 No Mechanical VTE Prophylaxis d/t N/A MechProphylax Ordered No VTE Pharm Prophylaxis d/t NA PharmProphylax ordered Sepsis (View protocol) Sepsis Present: No If YES complete Sepsis Event Note If YES complete Sepsis Event Note Ramon Garcia MD 05/25/18 0651: Core Measures/Misc (06/21) Sepsis (View protocol) If YES complete Sepsis Event Note If YES complete Sepsis Event Note Attending MD Review Statement Attending Statement Attending MD Statement: examined this patient, discuss w/resident/PA/COREMAKING MACHINE OPERATOR, agreed w/resident/PA/COREMAKING MACHINE OPERATOR Attending Assessment/Plan: Patient is seen and examined independently by me. Care plan discussed with chief medical director and resident. I agree with the physical exam findings and plan of care as outlined above with the following changes and additions. 77 yo F with history of CVA with residual left foot drop, PAF on Eliquis, RBBB, presented with difficulty to pronounce words and getting the words out. She told me that her speech problem started about 10 am but told medical laboratory technicians that it started about 1 pm. She denies new weakness or numbness. In the ED, patient was noted to have facial droop and right pronator drift. On my exam, no facial droop, Speech is mostly fluent but occasionally has to stop and think before saying the next words (speech is significant improved as per patient). No right arm pronator drift. Mild left foot drop (chronic as per patient). Of note, her Cardizem CD was reduced from 180 mg to 120 mg daily about 2 months ago due to HR in 40s and SBP 90s CT head shows small old right frontal lobe infarct but no acute intracranial abnormality. CTA head and neck shows no vascular occlusions or high grade stenosis. EKG shows NSR at 83 with old RBBB. Patient is admitted to Tele for CVA/TIA. Cardiac monitoring. Add ASA 81 mg. Continue Eliquis and statin. Echocardiogram. Neuro consult. Speech therapy. Ramon Garcia MD FACP
[2018-05-24] MEDS ORDERED: DILTIAZEM 24HR120 MG PO (20:32)
[2018-05-24] MEDS ORDERED: PRAVACHOL40 M1 PO (20:33)
[2018-05-24] MEDS ORDERED: FLECAINIDE ACE100 M1 PO (20:33)
[2018-05-24] MEDS ORDERED: ALENDRONATE SOD35 M2 PO (20:34)
[2018-05-24] MEDS ORDERED: ZETIA10 M1 PO (20:45)
[2018-05-24 22:58] VITALS: BP 130/60
--- NOTE | 2018-05-25 07:31 | PN- Housestaff ---
Thanh BAY,Arelis 05/25/18 0731: Subjective Follow-up For: TIA Complaints: she had episodes of slurring of speech and facial droop intermittently. Tele-Events Since Last Visit: She had episodes of bradycardia on court recording monitor Subjective: Patient is seen and examined at the bedside. She was feeling much better. Intermittently over the course of the day she had 2 or 3 episodes of left facial droop and aphasia. Discussed with Dr. Ventura and Dr. Vogel. It was decided that, Eliquis does not cause failure but it is not 100% effective too. We will continue Eliquis and start the patient on clopidogrel. Review of Systems Constitutional: Reports: no symptoms, weakness. Objective Last 24 Hrs of Vital Signs/I&O Vital Signs Date Time Temp Pulse Resp B/P B/P Pulse O2 O2 Flow FiO2 Mean Ox Delivery Rate 05/25 1440 98.1 60 18 112/60 97 05/25 0800 Room Air 05/25 0735 98.2 65 18 148/72 98 Room Air 05/24 2258 98.4 67 18 130/60 96 Intake & Output 05/25 1600 05/25 0800 05/25 0000 Intake Total 850 240 240 Output Total Balance 850 240 240 Intake, Oral 850 240 240 Number 1 Bowel Movements Patient 62.284 kg Weight Weight Bed scale Measurement Method Physical Exam General Appearance: Alert, Oriented X3, Cooperative, No Acute Distress Cardiovascular: Normal S1, Normal S2 Lungs: Clear to Auscultation, Normal Air Movement Neurological: Normal Speech, Strength at 5/5 X4 Ext, Normal Tone, Sensation Intact, Cranial Nerves 3-12 NL, Reflexes 2+ Extremities: No Clubbing, No Cyanosis, No Edema Vascular: Normal Pulses, Pulses Symmetrical Assessment/Plan Assessment: 77-year-old female past medical history of CVA in 2013, A. fib and osteoarthritis who presents with difficulty speaking, concerning for TIA/CVA. Vital signs-temperature 98.2, pulse 60, respiratory 18, blood pressure 148/72, SPO2 98% on room air. Assessment and plan- * Continue telemetry monitoring * We will discontinue Cardizem because of bradycardia and watch for the heart rate * We will start patient on tablet clopidogrel and continue Eliquis * We started her on tablet atorvastatin 80 mg daily * We will follow MRI of the brain * We will follow cardiology and neurology recommendation * PT/swallow evaluation * Full code * Diet-heart healthy diet DVT-Eliquis Problem List: 1. Atrial fibrillation 2. CVA (cerebral vascular accident) Pain Ratin Pain Location: n/a Pain Goal: Remain pain free Pain Plan: avoid NSAIDS Tomorrow's Labs & Rationales: f/u CBC,BEP, mag DVT/Prophylaxis: mechanical, pharmacological Carlozis Johann BAY 05/25/18 1141: Attending MD Review Statement Attending Statement Attending MD Statement: examined this patient, discuss w/resident/PA/OPERATOR ENGINEER, agreed w/resident/PA/OPERATOR ENGINEER, reviewed EMR data (avail) Attending Assessment/Plan: 77F PMH paroxysmal atrial fibrillation on Eliquis, HLD admitted overnight with left MCA CVA, initially presenting with dysarthria, dysphasia, facial droop, and right hand apraxia. Her symptoms resolved overnight and she is currently back to her baseline. Was not a candidate for tPA due to Eliquis, with CTA negative for occlusion. She is currently speaking clearly without any difficulty, has full use of her right hand, no facial droop, and walked around the floor without problem with physical therapy. Of note, she had an episode of sinus bradycardia to high 30's this morning and was asymptomatic. 1. Left MCA CVA 2. Paroxysmal atrial fibrillation Plan - Continue on telemetry - MRI/A of head - Continue ASA - Discontinue Cardizem, continue Flecainide - Will check records for reaction to statins, and if none will switch from Pravachol to Lipitor 40mg - Per cardiology, discontinue Eliquis and start Xarelto - Continue to work with PT/OT - Follow cardiology and neurology recommendations - Continue home medications
[2018-05-25 07:35] VITALS: BP 148/72
[2018-05-25 07:58] LABS: ABSOLUTE BASOPHIL COUNT 0 /CUMM (0.0-0.2); ABSOLUTE EOSINOPHIL COUNT 0.1 /CUMM (0.0-0.7); ABSOLUTE GRANULOCYTE CT 3.2 /CUMM (1.4-6.5); ABSOLUTE LYMPH COUNT 1.5 /CUMM (1.2-3.4); ABSOLUTE MONOCYTE COUNT 0.4 /CUMM (0.10-0.60); BASOPHIL % 0.8 % (0.0-2.0); GRANULOCYTE % 61.6 % (42.2-75.2); HEMATOCRIT 33.3 % (37-47); MEAN CORPUSCULAR HGB 24.7 PG (27.0-31.0); MEAN CORPUSCULAR HGB CONC 32.2 G/DL (33.0-37.0); MEAN CORPUSCULAR VOLUME 76.5 FL (81.0-99.0); MEAN PLATELET VOLUME 8.6 FL (7.4-10.4); PLATELET COUNT 307 /CUMM (130-400); RBC DISTRIBUTION WIDTH 22.3 % (11.5-14.5); RED BLOOD CELL CT 4.35 /CUMM (4.20-5.40); WHITE BLOOD CELL COUNT 5.3 /CUMM (4.8-10.8)
--- NOTE | 2018-05-25 09:29 | Cons- Cardiology ---
General Information and HPI Consulting Request Date of Consult: 05/25/18 Requested By: Johann Gonzalez MD Reason for Consult: Paroxysmal atrial fibrillation and TIA Source of Information: patient, old records Exam Limitations: no limitations History of Present Illness: The patient is a 77-year-old female with a history of paroxysmal atrial fibrillation on Eliquis, status post atrial flutter ablation 2014, CVA, dyslipidemia, chronic right bundle branch block who now presents with difficulty speaking. Patient states that she was in her usual state of health until the morning of admission. She states that she feels she may have had some right hand weakness because she spilled her coffee. She then was unable to speak. She was brought to the emergency room for evaluation. She is felt not to be a candidate for TPA since her speech gradually improved spontaneously. From a cardiac standpoint she denied chest pain shortness of breath or palpitations. She was recently evaluated in the office for bradycardia. [facility] at that time. When she is evaluated in the office her heart rate was stable. Allergies/Medications Allergies: Coded Allergies: Penicillins (Mild, HIVES 05/25/18) codeine (Mild, VOMITING 05/25/18) Home Med List: Alendronate Sodium 35 MG TABLET 1 TAB PO QW . (Reported) Apixaban (Eliquis) 5 MG TABLET 1 TAB PO Q12 AFIB Cholecalciferol (Vitamin D3) 1,000 UNIT TABLET 1 TAB PO DAILY SUPPLEMENT Diltiazem HCl (Diltiazem 24HR ER) 120 MG CAP.ER.24H 1 CAP PO DAILY HTN,AFIB ( Reported) Ezetimibe (Zetia) 10 MG TABLET 1 TAB PO DAILY CHOLESTEROL (Reported) Flecainide Acetate 100 MG TABLET 1 TAB PO BID . (Reported) Omeprazole 20 MG CAPSULE.DR 2 TAB PO BID BARRETTS ESOPHOGUS (Reported) Pravastatin Sodium (Pravachol) 40 MG TABLET 1 TAB PO DAILY CHOLESTEROL ( Reported) Current Medications: Current Medications Sig/Ricky Start time Last Medication Dose Route Stop Time Status Admin Acetaminophen 650 MG Q6P PRN 05/24 2200 AC 05/25 PO 0816 Apixaban 5 MG Q12 05/24 2152 AC 05/25 PO 0814 Aspirin 81 MG DAILY 05/25 0900 AC 05/25 PO 0813 Aspirin 0 .STK-MED ONE 05/24 1846 DC PO Aspirin Buffered 81 MG ONCE ONE 05/24 1830 DC 05/24 PO 05/24 1831 1908 Cholecalciferol 1,000 IU DAILY 05/25 900 AC 05/25 PO 0815 Diltiazem HCl 120 MG DAILY 05/25 09 AC 05/25 PO 0814 Ezetimibe 10 MG AT BEDTIME 05/24 2200 AC 05/24 PO 2334 Flecainide Acetate 100 MG BID 05/24 2200 AC 05/25 PO 0815 Omeprazole 40 MG BID 05/25 09 AC 05/25 PO 0814 Omeprazole 20 MG BID 05/24 2153 DC 05/24 PO 2333 Pravastatin Sodium 40 MG AT BEDTIME 05/24 2200 AC 05/24 PO 2333 Review of Systems Review of Systems: Eyes no blurred or double vision Ears no deafness or ringing Nose and throat no recurrent sinusitis Lungs per history of present illness Heart per history of present illness Abdomen no nausea vomiting Musculoskeletal occasional muscle and joint pains Psych no anxiety or depression Neuro as noted above Endocrine no heat or cold intolerance Past History Travel History Traveled to [place] past 21 day No Medical History Blood Transfusion Hx: No Neurological: CVA EENT: NONE Cardiovascular: AFIB Respiratory: NONE Gastrointestinal: NONE Hepatic: NONE Renal: NONE Musculoskeletal: NONE Psychiatric: NONE Endocrine: NONE Blood Disorders: NONE Cancer(s): NONE 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 FH: pancreatic cancer BROTHER Cardiac pacemaker FH: heart disease SISTER Cardiac pacemaker FH: heart disease Psychosocial History Where Do You Live? Home Primary Language: Turkmen Smoking Status: Never Smoked Functional Ability Ambulation: cane Exam & Diagnostic Data Vital Signs and I&O Vital Signs Date Time Temp Pulse Resp B/P B/P Pulse O2 O2 Flow FiO2 Mean Ox Delivery Rate 05/25 0735 98.2 65 18 148/72 98 Room Air 05/24 2258 98.4 67 18 130/60 96 05/24 1942 70 16 186/74 97 Room Air 05/24 1833 98.1 74 20 182/78 95 Room Air 05/24 1734 98.0 72 20 150/70 95 Room Air 05/24 1542 96 Room Air 05/24 1535 97.2 80 20 177/75 96 Room Air 05/24 1423 98.0 80 20 136/63 98 05/24 1337 97.2 86 18 171/78 95 Room Air Intake & Output 05/25 1600 05/25 0800 05/25 0000 05/24 1600 05/24 0805/24 0000 Intake Total 240 240 Output Total 200 Balance 240 240 -200 Intake, Oral 240 240 Output, Urine 200 Patient 137 lb 135 lb Weight Weight Bed scale Standing Scale Measurement Method Physical Exam: Patient is a well-developed well-nourished female appearing in no acute distress HEENT is unremarkable Neck is supple there is no JVD Lungs are clear Heart regular rhythm S1 and S2 are normal no murmurs gallops or rubs Abdomen bowel sounds positive Extremities without edema Neuro no obvious focal deficit psych Psych cooperative Skin no lesions Lymph no adenopathy Labs/Wilberto Results: Laboratory Tests 05/25 05/24 0635 1350 Chemistry Sodium (137 - 145 mmol/L) 142 141 Potassium (3.5 - 5.1 mmol/L) 4.5 4.4 Chloride (98 - 107 mmol/L) 107 107 Carbon Dioxide (22 - 30 mmol/L) 27 26 Anion Gap (5 - 16) 8 9 BUN (7 - 17 mg/dL) 14 14 Creatinine (0.5 - 1.0 mg/dL) 0.4 L 0.5 Estimated GFR (>60 ml/min) > 60 > 60 BUN/Creatinine Ratio (7 - 25 %) 35.0 H 28.0 H Glucose (65 - 99 mg/dL) 113 H Calcium (8.4 - 10.2 mg/dL) 9.1 Magnesium (1.6 - 2.3 mg/dL) 2.1 Total Bilirubin (0.2 - 1.3 mg/dL) 0.3 AST (14 - 36 U/L) 20 ALT (9 - 52 U/L) 26 Alkaline Phosphatase (<127 U/L) 75 Troponin I (< 0.11 ng/ml) < 0.01 < 0.01 Total Protein (6.3 - 8.2 g/dL) 7.3 Albumin (3.5 - 5.0 g/dL) 4.2 Globulin (1.9 - 4.2 gm/dL) 3.1 Albumin/Globulin Ratio (1.1 - 2.2 %) 1.4 Triglycerides (<150 mg/dL) 85 Cholesterol (<200 MG/DL) 153 LDL Cholesterol, Calc (65 - 129 mg/dL) 74 HDL Cholesterol (40 - 60 mg/dL) 62 H Cholesterol/HDL Ratio (0.00 - 4.23 %) 2 Coagulation PT (9.4 - 12.5 SEC) 15.1 H INR (0.90 - 1.19) 1.38 H APTT (25 - 37 SEC) 32 Hematology CBC w Diff NO MAN DIFF REQ NO MAN DIFF REQ WBC (4.8 - 10.8 /CUMM) 5.3 6.7 RBC (4.20 - 5.40 /CUMM) 4.35 4.54 Hgb (12.0 - 16.0 G/DL) 10.7 L 11.3 L Hct (37 - 47 %) 33.3 L 34.1 L MCV (81.0 - 99.0 FL) 76.5 L 75.0 L MCH (27.0 - 31.0 PG) 24.7 L 24.9 L MCHC (33.0 - 37.0 G/DL) 32.2 L 33.2 RDW (11.5 - 14.5 %) 22.3 H 22.4 H Plt Count (130 - 400 /CUMM) 307 366 MPV (7.4 - 10.4 FL) 8.6 7.8 Gran % (42.2 - 75.2 %) 61.6 63.1 Lymphocytes % (20.5 - 51.1 %) 28.4 28.3 Monocytes % (1.7 - 9.3 %) 7.2 6.5 Eosinophils % (0 - 5 %) 2.0 1.1 Basophils % (0.0 - 2.0 %) 0.8 1.0 Absolute Granulocytes (1.4 - 6.5 /CUMM) 3.2 4.2 Absolute Lymphocytes (1.2 - 3.4 /CUMM) 1.5 1.9 Absolute Monocytes (0.10 - 0.60 /CUMM) 0.4 0.4 Absolute Eosinophils (0.0 - 0.7 /CUMM) 0.1 0.1 Absolute Basophils (0.0 - 0.2 /CUMM) 0 0.1 Diagnostic Data EKG Results Sinus rhythm first degree AV block right bundle branch block Assessment/Plan Assessment/Plan 1. Paroxysmal atrial fibrillation on Eliquis and flecainide currently in sinus rhythm 2. TIA 3. History of flutter ablation 4. Chronic right bundle branch block Recommendations 1. I would continue her Cardizem and flecainide 2. Since she had a TIA on Eliquis this would be considered and Eliquis failure therefore would change her to Xarelto 3. Echocardiogram is pending 4. Continue to monitor on telemetry Thank you for allowing [facility] to participate in the care of your patient. Consult Acknowledgment - Thank you for your consult request.
[2018-05-25 14:40] VITALS: BP 112/60
--- NOTE | 2018-05-25 15:05 | ECHOCARDIOGRAM REPORT ---
MICHEAL CASTELLANO Age: 77 : 1940 Gender: F Exam Date: 05/25/2018 09:59 Exam Location: 1 [address] Ht (in): 63 Wt (lb): 137 BSA: 1.67 BP: 148 / 72 Ordering Physician: Юлия Law MD Referring Physician: Юлия Law MD Technologist: Scott Mcintyre [facility] Room Number: 174-1 Indications: Stroke Rhythm: Other Technical Quality: fair FINDINGS Left Ventricle Normal global left ventricular size, wall thickness, systolic function with no obvious regional wall motion abnormalities. Normal left ventricular ejection fraction estimated at 60-65%. Right Ventricle Normal right ventricular size and function. Right Atrium Normal right atrial size. Left Atrium Left atrial size at the upper limits of normal. Mitral Valve Moderate mitral annular calcification. Mild mitral regurgitation. Aortic Valve Diffuse thickening (sclerosis) of the aortic valve cusps without reduced excursion. Tricuspid Valve Tricuspid valve is normal in structure and function. Mild tricuspid regurgitation. Right ventricular systolic pressure estimated to be elevated at 45 mmHg. Pulmonic Valve Pulmonic valve not well visualized, grossly normal. Pericardium No pericardial effusion. Great Vessels Normal size aortic root. CONCLUSIONS Normal left and Right ventricular systolic function. Mild Pulmonary hypertension. No significanet valvular abnormalities noted. Ace Holbrook M.D. (Electronically Signed) Final Date: 25 May 2018 15:05 MEASUREMENTS (Male / Female) Normal Values 2D ECHO LV Diastolic Diameter PLAX 4.5 cm 4.2 - 5.9 / 3.9 - 5.3 cm LV Systolic Diameter PLAX 2.4 cm 2.1 - 4.0 cm LV Fractional Shortening PLAX 46.7 % 25 - 46 % LV Ejection Fraction 2D Teich 78.2 % IVS Diastolic Thickness 0.6 cm LVPW Diastolic Thickness 0.7 cm LV Relative Wall Thickness 0.3 RV Internal Dim ED PLAX 2.9 cm 1.9 - 3.8 cm LVOT Diameter 1.7 cm Aortic Root Diameter 2.5 cm LA Systolic Diameter LX 4.0 cm 3.0 - 4.0 / 2.7 - 3.8 cm LA Volume 64.0 cm 18 - 58 / 22 - 52 cm Ascending Aorta Diameter 2.8 cm DOPPLER AV Peak Velocity 131.0 cm/s AV Peak Gradient 6.9 mmHg AV Mean Velocity 97.3 cm/s AV Mean Gradient 4.0 mmHg AV Velocity Time Integral 31.7 cm LVOT Peak Velocity 120.0 cm/s LVOT Peak Gradient 5.8 mmHg LVOT Mean Velocity 65.8 cm/s LVOT Mean Gradient 2.0 mmHg LVOT Velocity Time Integral 24.3 cm LVOT Stroke Volume 55.2 cm AV Area Cont Eq vti 1.7 cm AV Area Cont Eq pk 2.1 cm MV Peak Velocity 153.0 cm/s MV Peak Gradient 9.4 mmHg MV Mean Velocity 76.8 cm/s MV Mean Gradient 3.0 mmHg Mitral E Point Velocity 132.0 cm/s Mitral A Point Velocity 76.0 cm/s Mitral E to A Ratio 1.7 MV PHT Velocity 155.0 cm/s MV Deceleration Phillips 448.0 cm/s MV Pressure Half Time 103.8 ms MV Area PHT 2.1 cm MV Deceleration Time 264.0 ms TR Peak Velocity 312.0 cm/s TR Peak Gradient 38.9 mmHg Right Atrial Pressure 10.0 mmHg Pulmonary Artery Systolic Pressure 48.9 mmHg Right Ventricular Systolic Pressure 48.9 mmHg PV Peak Velocity 157.0 cm/s PV Peak Gradient 9.9 mmHg PV Mean Velocity 105.0 cm/s PV Mean Gradient 5.0 mmHg PV Velocity Time Integral 47.1 cm LV E' Lateral Velocity 8.0 cm/s Mitral E to LV E' Lateral Ratio 16.5 LV E' Septal Velocity 9.1 cm/s Mitral E to LV E' Septal Ratio 14.6
--- NOTE | 2018-05-25 15:20 | Cons- Neurology ---
General Information and HPI Consulting Request Date of Consult: 05/25/18 Requested By: Johann Gonzalez MD Reason for Consult: TIA Source of Information: patient Exam Limitations: no limitations History of Present Illness: This is a 77-year-old woman with a history of paroxysmal atrial fibrillation on Eliquis, status post atrial flutter ablation 2014, CVA (affecting left foot), dyslipidemia, chronic right bundle branch block who now presents with recurrent short lasting episodes of difficulty speaking and hand weakness/apraxia. She notes that the episodes have been occurring with regularity over the last 24 hours and last 15 minutes at a time. On admission her BP systolic was 180. In between she is fine but feels that her hand is not right and drops things out of it. She notes that she has chronic anemia but has had normal endoscopy and colonoscopy 2 months ago. Allergies/Medications Allergies: Coded Allergies: Penicillins (Mild, HIVES 05/25/18) codeine (Mild, VOMITING 05/25/18) Home Med List: Alendronate Sodium 35 MG TABLET 1 TAB PO QW . (Reported) Apixaban (Eliquis) 5 MG TABLET 1 TAB PO Q12 AFIB Cholecalciferol (Vitamin D3) 1,000 UNIT TABLET 1 TAB PO DAILY SUPPLEMENT Diltiazem HCl (Diltiazem 24HR ER) 120 MG CAP.ER.24H 1 CAP PO DAILY HTN,AFIB ( Reported) Ezetimibe (Zetia) 10 MG TABLET 1 TAB PO DAILY CHOLESTEROL (Reported) Flecainide Acetate 100 MG TABLET 1 TAB PO BID . (Reported) Omeprazole 20 MG CAPSULE.DR 2 TAB PO BID BARRETTS ESOPHOGUS (Reported) Pravastatin Sodium (Pravachol) 40 MG TABLET 1 TAB PO DAILY CHOLESTEROL ( Reported) Current Medications: Current Medications Sig/Ricky Start time Last Medication Dose Route Stop Time Status Admin Acetaminophen 650 MG Q6P PRN 05/24 2200 AC 05/25 PO 0816 Apixaban 5 MG Q12 05/25 2100 AC PO Apixaban 5 MG Q12 05/24 2152 DC 05/25 PO 0814 Aspirin 81 MG DAILY 05/25 0900 DC 05/25 PO 0813 Aspirin 0 .STK-MED ONE 05/24 1846 DC PO Aspirin Buffered 81 MG ONCE ONE 05/24 1830 DC 05/24 PO 05/24 1831 1908 Cholecalciferol 1,000 IU DAILY 05/25 0900 AC 05/25 PO 0815 Clopidogrel Bisulfate 75 MG DAILY 05/26 0900 AC PO Diltiazem HCl 120 MG DAILY 05/25 09 DC 05/25 PO 0814 Ezetimibe 10 MG AT BEDTIME 05/24 2200 AC 05/24 PO 2334 Flecainide Acetate 100 MG BID 05/24 2200 AC 05/25 PO 0815 Omeprazole 40 MG BID 05/25 0900 AC 05/25 PO 0814 Omeprazole 20 MG BID 05/24 2153 DC 05/24 PO 2333 Patient Medication 1 ED ONE ONE 05/25 1415 DC Teaching ED 05/25 1416 Pravastatin Sodium 40 MG AT BEDTIME 05/24 2200 AC 05/24 PO 2333 Rivaroxaban 15 MG 1700 05/25 1700 CAN PO Review of Systems Review of Systems: No other symptoms other than HPI. 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 FH: pancreatic cancer BROTHER Cardiac pacemaker FH: heart disease SISTER Cardiac pacemaker FH: heart disease Psychosocial History Where Do You Live? Home Primary Language: Solomon Islander Smoking Status: Never Smoked Functional Ability Ambulation: cane Exam & Diagnostic Data Vital Signs and I&O Vital Signs Date Time Temp Pulse Resp B/P B/P Pulse O2 O2 Flow FiO2 Mean Ox Delivery Rate 05/25 1440 98.1 60 18 112/60 97 05/25 0800 Room Air 05/25 0735 98.2 65 18 148/72 98 Room Air 05/24 2258 98.4 67 18 130/60 96 05/24 1942 70 16 186/74 97 Room Air 05/24 1833 98.1 74 20 182/78 95 Room Air 05/24 1734 98.0 72 20 150/70 95 Room Air 05/24 1542 96 Room Air 05/24 1535 97.2 80 20 177/75 96 Room Air Intake & Output 05/25 1600 05/25 0800 05/25 0000 Intake Total 240 240 Output Total Balance 240 240 Intake, Oral 240 240 Patient 137 lb Weight Weight Bed scale Measurement Method Physical Exam: Alert and oriented x3. Fluent, comprehends and can repeat. S1 and S2, irregular heart rate and rhythm. EOMI, LEXI, no nystagmus, face symmetric, tongue midline, uvula raises in midline, V1-V3 normal sensation and equal, TPZ strong b/l. No drift, strength intact proxiamlly and distally -5/5, but no clear weakness in right hand strength. Reflexes symmetric. Downgoing toes. FNF normal and VF intact. Gait deferred. Last 48 Hours of Lab Results: Laboratory Tests 05/25 05/25 1215 0635 Chemistry Sodium (137 - 145 mmol/L) 142 Potassium (3.5 - 5.1 mmol/L) 4.5 Chloride (98 - 107 mmol/L) 107 Carbon Dioxide (22 - 30 mmol/L) 27 Anion Gap (5 - 16) 8 BUN (7 - 17 mg/dL) 14 Creatinine (0.5 - 1.0 mg/dL) 0.4 L Estimated GFR (>60 ml/min) > 60 BUN/Creatinine Ratio (7 - 25 %) 35.0 H Magnesium (1.6 - 2.3 mg/dL) 2.1 Troponin I (< 0.11 ng/ml) < 0.01 < 0.01 Triglycerides (<150 mg/dL) 85 Cholesterol (<200 MG/DL) 153 LDL Cholesterol, Calc (65 - 129 mg/dL) 74 HDL Cholesterol (40 - 60 mg/dL) 62 H Cholesterol/HDL Ratio (0.00 - 4.23 %) 2 Hematology CBC w Diff NO MAN DIFF REQ WBC (4.8 - 10.8 /CUMM) 5.3 RBC (4.20 - 5.40 /CUMM) 4.35 Hgb (12.0 - 16.0 G/DL) 10.7 L Hct (37 - 47 %) 33.3 L MCV (81.0 - 99.0 FL) 76.5 L MCH (27.0 - 31.0 PG) 24.7 L MCHC (33.0 - 37.0 G/DL) 32.2 L RDW (11.5 - 14.5 %) 22.3 H Plt Count (130 - 400 /CUMM) 307 MPV (7.4 - 10.4 FL) 8.6 Gran % (42.2 - 75.2 %) 61.6 Lymphocytes % (20.5 - 51.1 %) 28.4 Monocytes % (1.7 - 9.3 %) 7.2 Eosinophils % (0 - 5 %) 2.0 Basophils % (0.0 - 2.0 %) 0.8 Absolute Granulocytes (1.4 - 6.5 /CUMM) 3.2 Absolute Lymphocytes (1.2 - 3.4 /CUMM) 1.5 Absolute Monocytes (0.10 - 0.60 /CUMM) 0.4 Absolute Eosinophils (0.0 - 0.7 /CUMM) 0.1 Absolute Basophils (0.0 - 0.2 /CUMM) 0 08/20 1350 Chemistry Sodium (137 - 145 mmol/L) 141 Potassium (3.5 - 5.1 mmol/L) 4.4 Chloride (98 - 107 mmol/L) 107 Carbon Dioxide (22 - 30 mmol/L) 26 Anion Gap (5 - 16) 9 BUN (7 - 17 mg/dL) 14 Creatinine (0.5 - 1.0 mg/dL) 0.5 Estimated GFR (>60 ml/min) > 60 BUN/Creatinine Ratio (7 - 25 %) 28.0 H Glucose (65 - 99 mg/dL) 113 H Calcium (8.4 - 10.2 mg/dL) 9.1 Total Bilirubin (0.2 - 1.3 mg/dL) 0.3 AST (14 - 36 U/L) 20 ALT (9 - 52 U/L) 26 Alkaline Phosphatase (<127 U/L) 75 Troponin I (< 0.11 ng/ml) < 0.01 Total Protein (6.3 - 8.2 g/dL) 7.3 Albumin (3.5 - 5.0 g/dL) 4.2 Globulin (1.9 - 4.2 gm/dL) 3.1 Albumin/Globulin Ratio (1.1 - 2.2 %) 1.4 Coagulation PT (9.4 - 12.5 SEC) 15.1 H INR (0.90 - 1.19) 1.38 H APTT (25 - 37 SEC) 32 Hematology CBC w Diff NO MAN DIFF REQ WBC (4.8 - 10.8 /CUMM) 6.7 RBC (4.20 - 5.40 /CUMM) 4.54 Hgb (12.0 - 16.0 G/DL) 11.3 L Hct (37 - 47 %) 34.1 L MCV (81.0 - 99.0 FL) 75.0 L MCH (27.0 - 31.0 PG) 24.9 L MCHC (33.0 - 37.0 G/DL) 33.2 RDW (11.5 - 14.5 %) 22.4 H Plt Count (130 - 400 /CUMM) 366 MPV (7.4 - 10.4 FL) 7.8 Gran % (42.2 - 75.2 %) 63.1 Lymphocytes % (20.5 - 51.1 %) 28.3 Monocytes % (1.7 - 9.3 %) 6.5 Eosinophils % (0 - 5 %) 1.1 Basophils % (0.0 - 2.0 %) 1.0 Absolute Granulocytes (1.4 - 6.5 /CUMM) 4.2 Absolute Lymphocytes (1.2 - 3.4 /CUMM) 1.9 Absolute Monocytes (0.10 - 0.60 /CUMM) 0.4 Absolute Eosinophils (0.0 - 0.7 /CUMM) 0.1 Absolute Basophils (0.0 - 0.2 /CUMM) 0.1 Imaging/Other Studies: FINDINGS: There is no acute infarct, hemorrhage, mass, or extra-axial collection. There is redemonstration of a small focus of encephalomalacia in the high right paramedian frontal lobe (series 2 image 48). There is mild hypoattenuation in the periventricular and deep cerebral white matter extending into the basal ganglia likely reflecting small vessel ischemic changes. There is mild diffuse brain parenchymal volume loss with prominence of ventricles and sulci. No hydrocephalus is seen. The visualized paranasal sinuses and mastoid air cells are clear. Degenerative changes are noted at the right temporomandibular joint. IMPRESSION: - No acute intracranial abnormality. - Mild small vessel ischemic changes. Small old infarct in the high right frontal lobe. - Mild diffuse brain parenchymal volume loss. IMPRESSION: No vascular occlusions or high-grade stenoses in the intracranial or cervical vasculature. Dilatation of the main pulmonary artery which can be seen in the setting of pulmonary artery hypertension. Clinically correlate. Left Ventricle Normal global left ventricular size, wall thickness, systolic function with no obvious regional wall motion abnormalities. Normal left ventricular ejection fraction estimated at 60-65%. Right Ventricle Normal right ventricular size and function. Right Atrium Normal right atrial size. Assessment/Plan Assessment: 77 year old man with Atrial Fibrillation on Eliquis high dose, wwho presents with recurrent STUTTERING TIAS. 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 Local small to medium vessel occlusions do not respond much to anti-coagulation and hence Eliquis is not to blame. The cause of her TIAs is therefore NOT atrial fibrillation. She would therefore benefit the most from adding an anti-platelet medicaiton and if possible adding and ACEI/ARB for their stroke protective effect. Recommendations: 1. MRI brain although would not blade changer. 2. Add Plavix, stop aspirin. 3. Consider adding ZEFERINO or ARB for stroke prevention. 4. Switch Pravastatin to Atorvastatin 80mg. 5. I would not change Eliquis as these TIAs are not due to atrial fibrillation. 6. FOB test. Consult Acknowledgment - Thank you for your consult request.
[2018-05-25 21:30] VITALS: BP 132/68
[2018-05-26 06:42] VITALS: BP 122/62
--- NOTE | 2018-05-26 07:22 | PN- Housestaff ---
Thanh BAY,Arelis 05/26/18 0722: Subjective Follow-up For: TIA vs Stroke Complaints: no complaints Tele-Events Since Last Visit: Bradycardia in range of 40 -50 Review of Systems Constitutional: Denies: no symptoms. Objective Last 24 Hrs of Vital Signs/I&O Vital Signs Date Time Temp Pulse Resp B/P B/P Pulse O2 O2 Flow FiO2 Mean Ox Delivery Rate 05/26 0800 Room Air 05/26 0642 98.6 68 20 122/62 98 Room Air 05/25 2130 98.0 67 18 132/68 95 Room Air 05/25 1440 98.1 60 18 112/60 97 Intake & Output 05/26 1600 05/26 0800 05/26 0000 Intake Total 150 200 Output Total Balance 150 200 Intake, Oral 150 200 Patient 61.83 kg Weight Weight Bed scale Measurement Method Physical Exam General Appearance: Alert, Oriented X3, Cooperative, No Acute Distress Cardiovascular: Normal S1, Normal S2 Lungs: Clear to Auscultation, Normal Air Movement Neurological: Normal Gait, Normal Speech, Strength at 5/5 X4 Ext, Normal Tone, Sensation Intact, Cranial Nerves 3-12 NL, Reflexes 2+ Extremities: No Clubbing, No Cyanosis, No Edema Vascular: Normal Pulses, Pulses Symmetrical Assessment/Plan Assessment: Patient is a 77-year-old female with past medical history of atrial fibrillation , osteoarthritis, history of CVA in 2013 presented primarily with difficulty in the speaking and weakness in the right upper arm. Patient discharged on 05/26/2018 171 logist and supervisor insecticide opinion. According to the neurologist patient was not a candidate of TPA as she was on Eliquis. He advised for CTA to rule out any evidence of acute thrombus. CT of the head and neck did not show any evidence of vascular occlusion or high-grade stenosis. He advised to continue aspirin, Eliquis, statins. During the hospital course patient was having intermittent episodes of aphasia and facial droop in the left side. Discussed with the neurologist again. Dr. Ventura advised to either Plavix to Eliquis and pravastatin to atorvastatin. On the patient's request MRI of the head and MRA was done. There was small acute infarcts within the left posterior insula and deep right cerebellar hemisphere. We discharged the patient on same medication and advised to follow-up with the neurologist within a month of discharge.We also advised her to come back to ED, if she develops any strokelike symptoms. We referred her this speech and physical therapy. Bradycardia - Patient was on flecainide and Cardizem 120. Discussed with the supervisor insecticide advised to hold Cardizem for next 1 week. We advised the patient to follow-up with the supervisor insecticide within a week of discharge. CODE STATUS-full code Diet-heart healthy diet DVT prophylaxis-Eliquis Problem List: 1. Atrial fibrillation 2. CVA (cerebral vascular accident) Pain Ratin Pain Location: n/a Pain Goal: Remain pain free Pain Plan: n/a Tomorrow's Labs & Rationales: n/a DVT/Prophylaxis: mechanical, pharmacological Johann Gonzalez MD 05/26/18 1156: Attending MD Review Statement Attending Statement Attending MD Statement: examined this patient, discuss w/resident/PA/CLEARING HOUSE CLERK, agreed w/resident/PA/CLEARING HOUSE CLERK, reviewed EMR data (avail) Attending Assessment/Plan: 77F PMH paroxysmal atrial fibrillation on Eliquis, HLD admitted overnight with left MCA CVA, initially presenting with dysarthria, dysphasia, facial droop, and right hand apraxia. Her symptoms resolved overnight and she is currently back to her baseline. Was not a candidate for tPA due to Eliquis, with CTA negative for occlusion. She is currently speaking clearly without any difficulty, has full use of her right hand, no facial droop, and walked around the floor without problem with physical therapy. Yesterday was bradycardic to 30's, and while she was bradycardic had an episode lasting a few minutes of word finding difficulties and right hand apraxia, both of which had since resolved. Cardizem has been discontinued as a result. 1. Left MCA CVA 2. Paroxysmal atrial fibrillation Plan - Continue on telemetry - MRI/A of head - Continue ASA - Discontinue Cardizem, continue Flecainide - Will check records for reaction to statins, and if none will switch from Pravachol to Lipitor 40mg - Continue Eliquis, add Plavix - Continue to work with PT/OT - Follow cardiology and neurology recommendations - Continue home medications
[2018-05-26 08:18] LABS: ABSOLUTE BASOPHIL COUNT 0 /CUMM (0.0-0.2); ABSOLUTE EOSINOPHIL COUNT 0.2 /CUMM (0.0-0.7); ABSOLUTE GRANULOCYTE CT 3.2 /CUMM (1.4-6.5); ABSOLUTE LYMPH COUNT 1.6 /CUMM (1.2-3.4); ABSOLUTE MONOCYTE COUNT 0.4 /CUMM (0.10-0.60); BASOPHIL % 0.9 % (0.0-2.0); EOSINOPHIL % 2.9 % (0-5); GRANULOCYTE % 58.5 % (42.2-75.2); HEMATOCRIT 35.2 % (37-47); MEAN CORPUSCULAR HGB 24.6 PG (27.0-31.0); MEAN CORPUSCULAR HGB CONC 32.4 G/DL (33.0-37.0); MEAN CORPUSCULAR VOLUME 76.1 FL (81.0-99.0); MEAN PLATELET VOLUME 8.2 FL (7.4-10.4); PLATELET COUNT 337 /CUMM (130-400); RBC DISTRIBUTION WIDTH 22.5 % (11.5-14.5); RED BLOOD CELL CT 4.62 /CUMM (4.20-5.40); WHITE BLOOD CELL COUNT 5.4 /CUMM (4.8-10.8)
[2018-05-26] MEDS ORDERED: PLAVIX75 M1 PO ×2 (10:37→15:49)
[2018-05-26] MEDS ORDERED: ATORVASTATIN CA80 M1 PO ×2 (10:38→15:49)
--- NOTE | 2018-05-26 11:38 | PN- Cardiology ---
Subjective Subjective: Patient feels quite well today. Objective Vital Signs and I&Os Vital Signs Date Time Temp Pulse Resp B/P B/P Pulse O2 O2 Flow FiO2 Mean Ox Delivery Rate 05/26 0800 Room Air 05/26 0642 98.6 68 20 122/62 98 Room Air 05/25 2130 98.0 67 18 132/68 95 Room Air 05/25 1440 98.1 60 18 112/60 97 Intake & Output 05/26 1600 05/26 0800 05/26 0000 05/25 1600 05/25 0800 05/25 0000 Intake Total 150 200 850 240 240 Output Total Balance 150 200 850 240 240 Intake, Oral 150 200 850 240 240 Number 1 Bowel Movements Patient 136 lb 137 lb Weight Weight Bed scale Bed scale Measurement Method Physical Exam: General: no apparent distress. Alert. Eyes: No obvious scleral icterus. HEENT: No jugular venous distention or abnormal jugular venous pulsations. Cardiovascular: Normal intensity S1/S2. PMI not grossly displaced. Respiratory: Lungs clear to auscultation bilaterally. Abdomen: Soft, nontender with no guarding or rebound tenderness. Musculoskeletal: No clubbing or cyanosis noted Skin: warm Neurologic: Normal speech Current Medications: Current Medications Sig/Ricky Start time Last Medication Dose Route Stop Time Status Admin Acetaminophen 650 MG Q6P PRN 05/24 2200 AC 05/25 PO 0816 Apixaban 5 MG Q12 05/25 2100 AC 05/26 PO 08 Apixaban 5 MG Q12 05/24 2152 DC 05/25 PO 0814 Aspirin 81 MG DAILY 05/25 900 DC 05/25 PO 0813 Atorvastatin Calcium 80 MG 2100 05/25 2100 AC 05/25 PO 2204 Cholecalciferol 1,000 IU DAILY 05/25 900 AC 05/26 PO 0814 Clopidogrel Bisulfate 75 MG DAILY 05/26 900 DC PO Clopidogrel Bisulfate 75 MG DAILY 05/25 1815 AC 05/26 PO 08 Diltiazem HCl 120 MG DAILY 05/25 900 DC 05/25 PO 08 Docusate Sodium 100 MG DAILY NEEDED PRN 05/25 2030 AC PO Ezetimibe 10 MG AT BEDTIME 05/24 2200 AC 05/25 PO 2021 Flecainide Acetate 100 MG BID 05/24 2200 AC 05/26 PO 0814 Omeprazole 40 MG BID 05/25 900 AC 05/26 PO 0814 Patient Medication 1 ED ONE ONE 05/25 1415 [facility] ED 05/25 1416 Polyethylene Glycol 17 GM DAILY 05/25 2022 AC 05/26 PO 0816 Pravastatin Sodium 40 MG AT BEDTIME 05/24 2200 DC 05/24 PO 2333 Rivaroxaban 15 MG 1700 05/25 1700 CAN PO Senna 187 MG AT BEDTIME 05/25 2100 AC 05/25 PO 2205 Results Last 48 Hrs of Labs/Mics: Laboratory Tests 05/26/18 0640: Anion Gap 7, Estimated GFR > 60, BUN/Creatinine Ratio 26.0 H, Magnesium 2.0, CBC w Diff NO MAN DIFF REQ, RBC 4.62, MCV 76.1 L, MCH 24.6 L, MCHC 32.4 L, RDW 22.5 H, MPV 8.2, Gran % 58.5, Lymphocytes % 29.7, Monocytes % 8.0, Eosinophils % 2.9, Basophils % 0.9, Absolute Granulocytes 3.2, Absolute Lymphocytes 1.6, Absolute Monocytes 0.4, Absolute Eosinophils 0.2, Absolute Basophils 0 05/25/18 1215: Troponin I < 0.01 05/25/18 0635: Anion Gap 8, Estimated GFR > 60, BUN/Creatinine Ratio 35.0 H, Magnesium 2.1, Troponin I < 0.01, Triglycerides 85, Cholesterol 153, LDL Cholesterol, Calc 74, HDL Cholesterol 62 H, Cholesterol/HDL Ratio 2, CBC w Diff NO MAN DIFF REQ, RBC 4.35, MCV 76.5 L, MCH 24.7 L, MCHC 32.2 L, RDW 22.3 H, MPV 8.6, Gran % 61.6, Lymphocytes % 28.4, Monocytes % 7.2, Eosinophils % 2.0, Basophils % 0.8, Absolute Granulocytes 3.2, Absolute Lymphocytes 1.5, Absolute Monocytes 0.4, Absolute Eosinophils 0.1, Absolute Basophils 0 05/24/18 1350: Anion Gap 9, Estimated GFR > 60, BUN/Creatinine Ratio 28.0 H, Glucose 113 H, Calcium 9.1, Total Bilirubin 0.3, AST 20, ALT 26, Alkaline Phosphatase 75, Troponin I < 0.01, Total Protein 7.3, Albumin 4.2, Globulin 3.1, Albumin/ Globulin Ratio 1.4, PT 15.1 H, INR 1.38 H, APTT 32, CBC w Diff NO MAN DIFF REQ , RBC 4.54, MCV 75.0 L, MCH 24.9 L, MCHC 33.2, RDW 22.4 H, MPV 7.8, Gran % 63.1, Lymphocytes % 28.3, Monocytes % 6.5, Eosinophils % 1.1, Basophils % 1.0, Absolute Granulocytes 4.2, Absolute Lymphocytes 1.9, Absolute Monocytes 0.4, Absolute Eosinophils 0.1, Absolute Basophils 0.1 Recent Imaging Studies: Echocardiogram Normal left and Right ventricular systolic function. Mild Pulmonary hypertension. No significanet valvular abnormalities noted. Telemetry tracings were personally reviewed and shows sinus rhythm and sinus bradycardia Assessment/Plan Assessment/Plan 1. Paroxysmal atrial fibrillation on Eliquis and flecainide currently in sinus rhythm 2. TIA 3. History of flutter ablation 4. Chronic right bundle branch block 5. Sinus bradycardia Patient feels quite well today. She remains in sinus rhythm. Neurology input reviewed and as this was not felt to be a result of atrial fibrillation she will be continued on her Eliquis (instead of changing to a different anticoagulant). She is now also on Plavix. Echocardiogram as above. She should follow-up in my office within 1 week of discharge. Can hold off on resuming her Cardizem for the time being. Continue on the flecainide. Johnnie Massey MD [facility] Continue telemetry? No
--- NOTE | 2018-05-26 11:53 | Discharge Summary ---
Visit Information Visit Dates Admission Date: 05/24/18 Discharge Date: 05/26/2018 Hospital Course Course Attending Physician: Johann Gonzalez MD Primary Care Physician: Sabrina Newby MD Hospital Course: Patient is a 77-year-old female with past medical history of atrial fibrillation , osteoarthritis, history of CVA in 2013 presented primarily with difficulty in the speaking and weakness in the right upper arm. Acute left posterior insula, deep right cerebellar stroke - We admitted the patient to telemetry floor. CT scan of the head was done which was negative for any acute hemorrhage or infarct. We obtained neurologist and manager clinical pharmacy opinion. According to the neurologist patient was not a candidate of TPA as she was on Eliquis. He advised for CTA to rule out any evidence of acute thrombus. CT of the head and neck did not show any evidence of vascular occlusion or high-grade stenosis. He advised to continue aspirin, Eliquis, statins. During the hospital course patient was having intermittent episodes of aphasia and facial droop in the left side. Discussed with the neurologist again.Dr. Ventura advised to either Plavix to Eliquis and pravastatin to atorvastatin. On the patient's request MRI of the head and MRA was done.There was small acute infarcts within the left posterior insula and deep right cerebellar hemisphere. We discharged the patient on same medication and advised to follow-up with the neurologist within a month of discharge.We also advised her to come back to ED, if she develops any strokelike symptoms. We referred her this speech and physical therapy. Bradycardia, baseline history of nonvalvular atrial fibrillation was on Cardizem and flecainide- Patient was on flecainide and Cardizem 120. Discussed with the manager clinical pharmacy advised to hold Cardizem for next 1 week. We advised the patient to follow-up with the manager clinical pharmacy within a week of discharge. Echocardiogram was done which did not show any evidence of the clot, left ventricular ejection fraction was 60 -65%. Allergies: Coded Allergies: Penicillins (Mild, HIVES 05/25/18) codeine (Mild, VOMITING 05/25/18) Disposition Summary Disposition Principal Diagnosis: Acute left posterior insula, deep right cerebellar stroke Bradycardia, baseline history of nonvalvular atrial fibrillation was on Cardizem and flecainide Additional Diagnosis: Osteoarthritis Discharge Disposition: home health services Discharge Instructions General Discharge Information Code Status: Full Code Patient's Diet: Heart healthy diet Patient's Activity: As tolerated, take all fall precautions Follow-Up Instructions/Appts: Advised to follow-up with the primary care provider within a week of discharge Advised to follow-up with the manager clinical pharmacy within a week of discharge. We stopped her Cardizem because of the bradycardia. Advised her to follow-up with Asim Massey MD to re-decide if she needs Cardizem again. Advised to follow-up with the neurologist within a month of discharge. Advised to come back to [facility] ED, if developed strokelike symptoms. Medications at Discharge Discharge Medications: Stop taking the following medications: Diltiazem HCl (Diltiazem 24HR ER) 120 MG CAP.ER.24H ORAL DAILY Pravastatin Sodium (Pravachol) 40 MG TABLET ORAL DAILY Continue taking these medications: Omeprazole (Omeprazole) 20 MG CAPSULE.DR 2 Tablet ORAL TWICE DAILY Qty = 360 Comments: Last Taken Date: 03/08/14 Last Taken Time: 0945 AM TAKE 2 CAPSULES TWICE A DAY - SIG Obtained From [employer] Apixaban (Eliquis) 5 MG TABLET 1 Tablet ORAL EVERY 12 HOURS Qty = 30 Comments: Last Taken Date: 03/08/14 Last Taken Time: 0945 AM Cholecalciferol (Vitamin D3) 1,000 UNIT TABLET 1 Tablet ORAL DAILY Days = 30 Comments: Last Taken Date: 03/08/14 Last Taken Time: 0945 AM Flecainide Acetate (Flecainide Acetate) 100 MG TABLET 1 Tablet ORAL TWICE DAILY Comments: Last Taken: 05/26/18 Time: 8AM Alendronate Sodium (Alendronate Sodium) 35 MG TABLET 1 Tablet ORAL Once a Week Qty = 12 Comments: NOT GIVEN IN HOSPITAL Ezetimibe (Zetia) 10 MG TABLET 1 Tablet ORAL DAILY Comments: Last Taken: 05/25/18 Time: 8PM Start taking the following new medications: Atorvastatin Calcium (Atorvastatin Calcium) 80 MG TABLET 80 Milligram ORAL 2100 Qty = 90 No Refills Instructions: . Comments: Last Taken: 05/25/18 Time: 10PM Clopidogrel Bisulfate (Plavix) 75 MG TABLET 75 Milligram ORAL DAILY Qty = 90 No Refills Instructions: . Comments: Last Taken: 05/26/18 Time: 8AM Attending MD Review Statement Documenting Attending: Carlos BAY,Johann
--- NOTE | 2018-05-26 12:50 | MRI REPORT ---
EXAMINATION: MR BRAIN WITHOUT AND WITH CONTRAST MR ANGIOGRAPHY HEAD WITHOUT AND WITH CONTRAST CLINICAL INFORMATION: Left-sided weakness COMPARISON: Noncontrast head CT and CT angiogram dated 05/24/2018. MRI of the head without contrast dated 03/03/2014. TECHNIQUE: Multiplanar, multisequence MRI of the brain was obtained before and after the intravenous administration of 7 mL of Gadavist. MRA of the head was performed utilizing three-dimensional [id number] and contrast-enhanced techniques. Rotating maximum intensity projection images were generated by the technologist. FINDINGS: Brain MRI: There is a new elongated focus of restricted diffusion present within the posterior portion of the left insula, consistent with an acute infarct. An additional punctate acute infarct is present within the deep right cerebellar hemisphere. Again noted are foci of cortical encephalomalacia within the mesial right frontal lobe and lateral left frontal lobe, consistent with remote infarcts. Patchy foci of T2/FLAIR signal abnormality are present within the periventricular and subcortical white matter, consistent with mild microvascular ischemic change. There is no abnormal parenchymal enhancement is present. A punctate focus of susceptibility artifact is present within the right frontal centrum semiovale, unchanged and likely the sequela of remote microhemorrhage. Mild generalized prominence of the ventricles and cortical sulci remains stable and is age-appropriate. No extra-axial collections are present. Flow-voids of the major intracranial vessels are unremarkable. The paranasal sinuses are clear. A small amount of fluid is present within the right petrous apex. The mastoid air cells are clear. The orbits are unremarkable. Brain MRA: The intracranial segments of the internal carotid arteries are normal in caliber. The anterior, middle and posterior cerebral arteries are normal. There is hypoplasia of the left P1 segment. Moderate-sized left and small caliber right posterior communicating arteries are visualized. The intradural vertebral arteries and basilar artery are normal in caliber. The basilar artery branch vessels appear unremarkable. No areas of high-grade stenosis or large vessel occlusion are present. There is no evidence of aneurysm or arteriovenous malformation. The dural venous sinuses are patent. IMPRESSION: Small acute infarcts within the left posterior insula and deep right cerebellar hemisphere. Remote infarcts of the right paramedian frontal lobe and left lateral frontal lobe. Mild microvascular ischemic change. Unremarkable MRA of the head. No evidence of large vessel occlusion or high-grade stenosis. This critical result was discussed with Dr. Thanh at 12:45 PM on 05/26/2018 and it was ascertained that the content and urgency of the report was understood at the time of direct communication.
--- NOTE | 2018-05-26 13:03 | Patient Discharge Instructions ---
Discharge Instructions General Discharge Information You were seen/treated for: Episodes of weakness in right upper hand due to stroke evident on MRI. You were also having bradycardia. Special Instructions: Please follow up with PCP with in a week of discharge. We added Plavix to your medication list You were having bradycardia so we held cardizem for 1 week.Please discuss with your small brake form operator, to restart it. Diet Recommended Diet: Heart Healthy Acute Coronary Syndrome Inclusion Criteria At DC or during hospital stay patient has or had the following: ACS DIAGNOSIS No Discharge Core Measures Meds if any: Prescribed or Continued at Discharge Meds if any: NOT Prescribed or Continued at Discharge Congestive Heart Failure Inclusion Criteria At DC or during hospital stay patient has or had the following: CHF DIAGNOSIS No Discharge Core Measures Meds if any: Prescribed or Continued at Discharge Meds if any: NOT Prescribed or Continued at Discharge Cerebrovascular accident Inclusion Criteria At DC or during hospital stay patient has or had the following: CVA/TIA Diagnosis Yes Discharge Core Measures Meds if any: Prescribed or Continued at Discharge Antithrombotic Yes Statin (required if LDL =>70) Yes Anticoagulant No Meds if any: NOT Prescribed or Continued at Discharge Venous thromboembolism Inclusion Criteria VTE Diagnosis No VTE Type NONE VTE Confirmed by (Test) NONE Discharge Core Measures - Per Current guidelines, there needs to be overlap - treatment for the first 5 days of Warfarin therapy. - If discharged on Warfarin prior to 5 days of - overlap therapy, the patient will need to be - assessed for post discharge needs including - *Post discharge parental anticoagulation - *Warfarin and/or parental anticoagulation education - *Follow up date to check INR post discharge At least 5 days overlap therapy as Inpatient No Meds if any: Prescribed or Continued at Discharge Note: Overlap Therapy is Warfarin and Anticoagulant Meds if any: NOT Prescribed or Continued at Discharge
== END 2018-05-26 16:20 | disposition home health service (06) | DRG 66 ==
LOC: ERH 13:34 → 1NO 19:02 → ERHI 19:02 → EDBEDREQ 19:53 → ENRESERV 20:05 → EDBEDREQ 20:06 → ENTRNSPT 20:35 → EDTRNSPTSTS 20:37 → EDBEDREQ 20:38 → 1NO 21:03 → CMPTRNSPT 21:11 → 1NO 05-25 07:38 → ENPENDDIS 05-26 13:03 → ENTRNSPT 05-26 15:51 → CMPTRNSPT 05-26 16:14 → 1NO 05-26 16:20
PROVIDERS: Internal Medicine Adolescent Medicine; Physician Assistant Medical; Preventive Medicine Public Health & General Preventive Medicine
DX: I63.412 Cerebral infarction due to embolism of left middle cerebral artery (principal); R47.01 Aphasia; I69.344 Monoplegia of lower limb following cerebral infarction affecting left non-dominant side; Z79.01 Long term (current) use of anticoagulants; G93.89 Other specified disorders of brain; Z86.73 Personal history of transient ischemic attack (TIA), and cerebral infarction without residual deficits; Z88.5 Allergy status to narcotic agent; Z88.0 Allergy status to penicillin; E78.5 Hyperlipidemia, unspecified; I48.0 Paroxysmal atrial fibrillation; I45.10 Unspecified right bundle-branch block; R00.1 Bradycardia, unspecified; R29.810 Facial weakness
CPT/HCPCS: 1NSP; 70552; 70562; 36415; 36592; 70553; 82436; 93005; 93010; 93306; 96105-GN; 97116-GO; 97161-GP; A9579; J3490